=== PATIENT | female | born 1940 | race Caucasian/White ===

== ENCOUNTER 2018-09-26 20:06 | Emergency (ER) | payer MEDICARE ==
[~2018-09-26] VITALS: Ht 170.2 cm; Wt 65.0 kg
[2018-09-26 20:18] VITALS: BP 129/77
[2018-09-26] MEDS ORDERED: CLIN150C2 PO (21:18)
[2018-09-26] MEDS ORDERED: TETanus/Pertussis (Acell)/Diphther VAC/PF (Tdap-Adult) 0.5ml syringe IMVAC ONE (21:45)
== END 2018-09-26 21:50 | disposition home or self-care (01) ==
LOC: ER 20:07
DX: J34.0 Abscess, furuncle and carbuncle of nose (principal); H57.11 Ocular pain, right eye; H92.01 Otalgia, right ear
CPT/HCPCS: 90471; 90715; 99283

== ENCOUNTER 2018-11-30 01:39 | Emergency (ER) | payer MEDICARE ==
[~2018-11-30] VITALS: Ht 170.2 cm; Wt 80.0 kg
[2018-11-30 02:41] LABS: BASOPHILS % (AUTO) 0.5 % (0-1); EOSINOPHILS # (AUTO) 0.1 X10'3 (0-0.9); EOSINOPHILS % (AUTO) 1.1 % (0-6); HEMATOCRIT 32.4 % (35.0-45.0); HEMOGLOBIN 10.9 g/dl (12.0-16.0); LYMPHOCYTES # (AUTO) 0.9 X10'3 (1.1-4.8); LYMPHOCYTES % (AUTO) 16.3 % (21-51); MEAN CORPUSCULAR HGB CONC 33.7 g/dL (33.0-36.5); MEAN PLATELET VOLUME 7.3 FL (7.4-10.4); MONOCYTES # (AUTO) 0.3 X10'3 (0-0.9); MONOCYTES % (AUTO) 5.8 % (2-12); NEUTROPHILS # (AUTO) 4.4 X10'3 (1.8-7.7); NEUTROPHILS % (AUTO) 76.3 % (42-75); PLATELET COUNT 190 X10'3 (140-440); RED CELL DISTRIBUTION WIDTH 14.9 % (11.5-14.5); WHITE BLOOD COUNT 5.8 X10'3 (4.5-11.0)
[2018-11-30 03:11] LABS: ALANINE AMINOTRANSFERASE 36 U/L (12-78); ALBUMIN 3.3 G/DL (3.4-5.0); ALBUMIN/GLOBULIN RATIO 1.1 (1.1-1.5); ALKALINE PHOSPHATASE 88 IU/L (46-116); ANION GAP 9 (8-16); ASPARTATE AMINO TRANSFERASE 73 U/L (10-37); BILIRUBIN,TOTAL 0.6 MG/DL (0.1-1.0); BLOOD UREA NITROGEN 14 MG/DL (7-18); BUN/CREATININE RATIO 17.1 (6.6-38.0); CALCIUM 8.7 MG/DL (8.5-10.1); CHLORIDE 105 MMOL/L (99-107); CREATININE 0.82 MG/DL (0.40-0.90); GLUCOSE 93 MG/DL (70-104); POTASSIUM 3.4 MMOL/L (3.5-5.1); SODIUM 140 MMOL/L (135-145); TOTAL CARBON DIOXIDE 26.3 MMOL/L (24-32); TOTAL PROTEIN 6.4 G/DL (6.4-8.2); eGFR 68 ML/MIN
[2018-11-30] MEDS ORDERED: TETanus/Pertussis (Acell)/Diphther VAC/PF (Tdap-Adult) 0.5ml syringe IM ONE (03:15)
[2018-11-30] MEDS ORDERED: LIDOcaine 1% w/epiNEPHrine 1:200,000 30ml vial IM ONE (03:15)
[2018-11-30 03:17] LABS: MAGNESIUM 1.9 MG/DL (1.5-2.4)
--- NOTE | 2018-11-30 04:02 | NUR ---
90 cc of n/s was initially used to clean the wound along with gauze pads. After using 90 cc I switched to hydrogen peroxide (350 cc) to remove the dried blood and clean the wound on the patients face. Wash clothes were used to protect the patients eyes. The wound and face were cleaned, MD and RN were notified of such. Patients family (son and daughter) were present with me at bedside. Patient tolerated this cleaning well.
[2018-11-30 04:08] VITALS: BP 135/87
== END 2018-11-30 04:12 | disposition home or self-care (01) ==
LOC: ER 01:40
DX: S01.81XA Laceration without foreign body of other part of head, initial encounter (principal); W19.XXXA Unspecified fall, initial encounter; Y93.89 Activity, other specified; Y92.89 Other specified places as the place of occurrence of the external cause; Y99.8 Other external cause status
CPT/HCPCS: 12013; 36415; 70450; 71045; 72125; 80053; 83735; 83880; 84484; 85025; 90471; 90715; 99284; J3490

== ENCOUNTER 2019-09-02 18:05 | Emergency (ER) | payer MEDICARE ==
[~2019-09-02] VITALS: Ht 172.7 cm; Wt 77.0 kg
[2019-09-02 20:22] VITALS: BP 137/84
== END 2019-09-02 20:24 | disposition home or self-care (01) ==
LOC: ER 18:06
DX: S63.502A Unspecified sprain of left wrist, initial encounter (principal); S09.90XA Unspecified injury of head, initial encounter; S80.01XA Contusion of right knee, initial encounter; W01.10XA Fall on same level from slipping, tripping and stumbling with subsequent striking against unspecified object, initial encounter; Y93.89 Activity, other specified; Y92.000 Kitchen of unspecified non-institutional (private) residence as the place of occurrence of the external cause; Y99.8 Other external cause status
CPT/HCPCS: 29125; 70450; 73110; 99284

== ENCOUNTER 2019-10-24 06:45 | Emergency (ER) | payer MEDICARE ==
[~2019-10-24] VITALS: Ht 172.7 cm; Wt 77.3 kg
[2019-10-24 06:48] VITALS: BP 163/73
--- NOTE | 2019-10-24 06:53 | NUR ---
Pt's son called to let us know that his mom has some Alzheimer's and wanted to make sure we knew and to give us his name and number in case we had questions or she needed a ride home. Pt's son is Lb Trevino [phone].
== END 2019-10-24 07:42 | disposition home or self-care (01) ==
LOC: ER 06:45
DX: M79.604 Pain in right leg (principal)
CPT/HCPCS: 99281